=== PATIENT | male | born 1945 | race Caucasian/White ===

== ENCOUNTER 2024-08-01 12:35 | Emergency (ER) | payer OTHER, SELFPAY ==
[2024-08-01 12:38] VITALS: BP 174/100
--- NOTE | 2024-08-01 14:56 | ED.GENMED ---
History of Present Illness
General
Chief Complaint: Dizziness
Source: patient
Exam Limitations: none
Time Seen by Provider: 08/01/24 14:45
Nursing documentation reviewed up to this point in time: agreed with
History of Present Illness
History of Present Illness:
Patient to ED with complaint of dizziness. States he woke at 11:30PM last night to check the time and noted dizziness. Dizziness lasted all night. Today dizziness is intermittent. States he tried to work today but was let go early because of
dizziness. Denies fever/chills, n/v/d. No recent illness. No prior history of same.
Past History
Past History
ED Past Medical History: CAD, HTN, Hypercholesterolemia and NIDDM
ED Past Surgical History: Cardiac (stent)
Social History
Tobacco: Former smoker
Alcohol: Occasional
Drug: None
Personal:
Living: with family
Family History
Family History: CAD
Review of Systems
Review of Systems
Allergies reviewed?: Yes
All Other Systems: ROS reviewed and negative except as documented in HPI and ROS
Constitutional: Reports no symptoms
EENT: Reports no symptoms
Respiratory: Reports no symptoms
Cardiac: Reports no symptoms
ABD/GI: Reports no symptoms
: Reports no symptoms
Musculoskeletal: Reports no symptoms
Skin: Reports no symptoms
Neurological: Reports dizzy
Psychiatric: Reports no symptoms
Phy Exam
General Physical Exam
General Presentation: well appearing and no apparent distress
General age: appears stated age
General Skin: warm
General Habitus: normal
General Mental: alert
ENT Exam
ENT Exam: EOMI, TM's normal and neck supple
Eye Exam
Eye Exam: PERRL, EOMI and other (No nystagmus)
Cardiovascular Exam
Cardiovascular Exam: regular rate/rhythm and no edema
Neurological Exam
Neurological Exam: alert, oriented x3, CN II-XII intact, no motor deficits, no sensory deficits and speech normal
NIH Stroke Score
Level of Consciousness: 0 - Alert
LOC questions: 0-Answers both correctly
LOC Commands: 0-Performs both correctly
Best Gaze: 0-Normal
Visual [place]: 0=Normal, no visual loss
Facial palsy: 0=Normal, symmetrical
Motor - Right Arm: 0=No drift 10 seconds
Motor - Left Arm: 0=No drift 10 seconds
Motor - Right Le-No drift 5 seconds
Motor - Left Le-No drift 5 seconds
Limb Ataxia: 0-Absent
Sensation: 0-Normal
Best Language: 0-No aphasia
Dysarthria: 0-Normal
Extinction and Inattention: 0-No abnormality
Total Score:: 0
Musculoskeletal Exam
Musculoskeletal Exam: full ROM and neuro vasc intact
Skin Exam
Skin Exam: normal color, warm/dry and no rash
Psychiatric Exam
Psychiatric Exam: normal mood/affect
Course
Orders/Labs/Results
Orders:
Orders
08/01/24 14:54
Meclizine [Antivert] 12.5 mg PO NOW STA
08/01/24 14:55
Electrocardiogram (*1) Urgent
Reason for Study: Vertigo / Dizzy
CT Head W/o Iv Contrast Urgent
Comment:
Reason For Exam: gait dysfunction, dizziness
EKG- Treatment ONCE
08/01/24 16:38
Complete Blood Count/With Diff Urgent
Comprehensive Metabolic Panel Urgent
Troponin I Urgent
Urinalysis Reflex To Culture Urgent
Date Specimen was Collected: 08/01/24
Time Specimen was Collected: 16:39
08/01/24 17:25
Orthostatic VS- Treatment ONCE
Abnormal Lab Results
08/01/24
16:38
RBC 4.13 L 10^6/uL
(4.70-6.10)
Hgb 12.4 L g/dL
(13.0-18.0)
Hct 35.0 L %
(39.0-52.0)
Absolute Monos (auto) 0.7 H 10^3/uL
(0.1-0.6)
Glucose 141 H mg/dl
(70-99)
08/01/24 16:38
08/01/24 16:38
Vital Signs
Initial and Last Documented VS:
Initial Vital Signs
Temp Pulse Resp BP Pulse Ox
98.7 F 77 18 174/100 98
08/01/24 12:38 08/01/24 12:38 08/01/24 12:38 08/01/24 12:38 08/01/24 12:38
Last Documented Vital Signs
Temp Pulse Resp BP Pulse Ox
98.7 F 78 18 179/102 100
08/01/24 12:38 08/01/24 17:36 08/01/24 12:38 08/01/24 17:36 08/01/24 17:36
*Radiology
Radiology exam reviewed: radiology read reviewed
*Critical Care Note
Total Time (30-74mins, 75-104mins- exclusive of procedures): Not Applicable
Update Note
Update Note:
Labs, CT results reviewed with patient. EKG NSR, Troponin neg. Neuro exam unremarkable, no deficits noted. Dizziness with position changes consistent with vertigo. Given rx for meclizine. Will discharge home, close follow up with PCP. Given
number for vestibula rehab. Given instructions on s/s to return to eD and he is agreeable to plan.
ED Attending Note
-
Portions of this chart may have been created with voice recognition software.� Occasional wrong word or��sound alike� substitutions may have occurred due to the inherent limitations of voice recognition software.
Discharge Plan
Departure
Patient Disposition: Home (Routine Discharge)
Date of Disposition: 08/01/24
Time of Disposition: 17:41
Patient with high blood pressure during this ER visit?: No
Condition: Good
Covid-19: Not Applicable
Discharge Problem:
Vertigo
Instructions: Vertigo (a Type of Dizziness) (DC)
Prescriptions:
New
meclizine 25 mg tablet
25 mg PO TID PRN (Reason: dizziness) Qty: 14 0RF
No Action
multivitamin 1 EACH tablet
1 ea PO DAILY
lisinopril 20 MG tablet
20 mg PO DAILY
aspirin [Soila Chewable Aspirin] 81 MG tablet,chewable
81 mg PO DAILY
atorvastatin 40 MG tablet
40 mg PO QPM Qty: 90 5RF
nitroglycerin 0.4 MG tablet, sublingual
0.4 mg sublingual [id number] PRN (Reason: chest pain) Qty: 25 5RF
metformin 1,000 MG tablet
1,000 mg PO BID Qty: 0 0RF
metoprolol succinate 25 MG tablet extended release 24 hr
25 mg PO DAILY Qty: 90 10RF
pantoprazole [Protonix] 20 mg tablet,delayed release (DR/EC)
20 mg PO DAILY Qty: 30 0RF
Referrals:
Jess Castro, DO [Family Provider] - Tomorrow
Stand Alone Forms: Return to Work
Interventions
Interventions:
*Risk Screen - Suicide Last Done: 08/01/24 12:38
*General Assessment Last Done: 08/01/24 12:38
*Neglect/Abuse Screening Last Done: 08/01/24 15:21
ED- Fall Risk Assessment Last Done: 08/01/24 15:20
*ED COVID-19 Vaccine History Last Done: 08/01/24 12:38
ED- Neurological Assessment Last Done: 08/01/24 15:02
ED Swallowing Screen Last Done: 08/01/24 15:02
Discharge Date and Time
Print Language: POLISH
[2024-08-01 15:02] VITALS: BMI 26.4
[2024-08-01] MEDS: ANTIVERT 12.5 MG PO (15:05)
[2024-08-01 17:00] VITALS: BP 160/90
[2024-08-01 17:00] LABS: % Basophils 0.8 % (0-2); % Eosinophils 3.3 % (0-6); % Immature Granulocytes 0.1 % (0-0.5); % Lymphocytes 32.2 % (20.5-51.1); % Monocytes 8.8 % (1.7-9.3); % Neutrophils 54.8 % (42.2-75.2); Absolute Basophils 0.1 10^3/uL (0-0.2); Absolute Eosinophils 0.3 10^3/uL (0-0.7); Absolute Lymphocytes 2.7 10^3/uL (1.2-3.4); Absolute Monocytes 0.7 10^3/uL (0.1-0.6); Absolute Neutrophils 4.5 10^3/uL (1.4-6.5); Hemoglobin 12.4 g/dL (13.0-18.0); Mean Corp Hgb Conc. 35.4 g/dL (33.0-37.0); Mean Corpuscular Volume 84.7 fL (80.0-94.0); Mean Platelet Volume 8.4 fL (7.4-10.4); Nucleated Red Blood Cells % 0 % (-); Platelet Count 233 10^3/uL (130-400); Red Blood Cell Count 4.13 10^6/uL (4.70-6.10); Red Cell Dist. Width 12.8 % (11.5-14.5); White Blood Cell Count 8.3 10^3/uL (4.8-10.8)
[2024-08-01 17:01] LABS: Urine Albumin Negative (Neg - Trace); Urine Bilirubin Negative (Negative); Urine Character Clear (Clear); Urine Color Yellow; Urine Glucose Negative (Negative); Urine Ketone Negative (Negative); Urine Leukocyte Negative (Negative); Urine Nitrite Negative (Negative); Urine Occult Blood Negative (Negative); Urine Urobilinogen Negative (Neg - 1+)
[2024-08-01 17:08] LABS: ALT (SGPT) 30 U/L (0-50); AST (SGOT) 32 U/L (17-59); Albumin 4.5 g/dl (3.5-5.0); Alkaline Phosphatase 65 U/L (38-126); Blood Urea Nitrogen 17 mg/dl (9-20); Calcium 9.9 mg/dl (8.4-10.2); Carbon Dioxide 23 mmol/L (22-30); Chloride 102 mmol/L (98-107); Estimated Creatinine Clearance 84 ml/min; Glucose 141 mg/dl (70-99); Potassium 4.3 mmol/L (3.5-5.1); Sodium 135 mmol/L (135-145); Total Bilirubin 0.8 mg/dl (0.2-1.3); Total Protein 7.3 g/dl (6.3-8.2); eGFR > 60.00
[2024-08-01 17:18] LABS: Troponin I < 0.012 ng/ml
[2024-08-01 17:33] VITALS: BP 164/83; BP 179/102; BP 182/96; PULSE 83; PULSE 84; PULSE 92
[2024-08-01 17:34] VITALS: BP 182/96
[2024-08-01 17:36] VITALS: BP 179/102
== END 2024-08-01 17:53 | disposition home or self-care (01) ==
LOC: EMR 12:35
PROVIDERS: Nurse Practitioner; EMERGENCY PHYSICIAN Emergency Medicine; FAMILY PHYSICIAN Family Medicine
DX: R42 Dizziness and giddiness (principal); I25.10 Atherosclerotic heart disease of native coronary artery without angina pectoris; I10 Essential (primary) hypertension; E78.00 Pure hypercholesterolemia, unspecified; E11.9 Type 2 diabetes mellitus without complications; K57.90 Diverticulosis of intestine, part unspecified, without perforation or abscess without bleeding; Z95.5 Presence of coronary angioplasty implant and graft; Z85.828 Personal history of other malignant neoplasm of skin; Z87.891 Personal history of nicotine dependence; Z79.82 Long term (current) use of aspirin; Z79.84 Long term (current) use of oral hypoglycemic drugs; Z88.1 Allergy status to other antibiotic agents
CPT/HCPCS: 99285; 70450; 80053; 81003; 84484; 85025; 93005

== ENCOUNTER 2024-12-17 11:50 | Emergency (ER) | payer OTHER, SELFPAY ==
[2024-12-17 12:08] VITALS: BP 140/78
[2024-12-17 12:37] LABS: Hematocrit 32.6 % (39.0-52.0); Hemoglobin 11.3 g/dL (13.0-18.0); Mean Corp Hgb Conc. 34.7 g/dL (33.0-37.0); Mean Corpuscular Volume 87.9 fL (80.0-94.0); Nucleated Red Blood Cells % 0 % (-); Platelet Count 242 10^3/uL (130-400); Red Cell Dist. Width 12.7 % (11.5-14.5)
[2024-12-17 13:01] LABS: Troponin I < 0.012 ng/ml
[2024-12-17 13:09] LABS: ALT (SGPT) 34 U/L (0-50); AST (SGOT) 39 U/L (17-59); Albumin 4.6 g/dl (3.5-5.0); Alkaline Phosphatase 58 U/L (38-126); Blood Urea Nitrogen 18 mg/dl (9-20); Calcium 9.7 mg/dl (8.4-10.2); Carbon Dioxide 22 mmol/L (22-30); Chloride 105 mmol/L (98-107); Glucose 244 mg/dl (70-99); Potassium 4.3 mmol/L (3.5-5.1); Sodium 137 mmol/L (135-145); Total Protein 7.5 g/dl (6.3-8.2); eGFR > 60.00
[2024-12-17 13:13] VITALS: BP 141/79
[2024-12-17 13:15] VITALS: BMI 23.7
[2024-12-17 14:00] VITALS: BP 138/70
--- NOTE | 2024-12-17 14:43 | ED.GENMED ---
History of Present Illness
General
Chief Complaint: Chest Pain
Source: patient
Exam Limitations: none
Time Seen by Provider: 12/17/24 14:17
Nursing documentation reviewed up to this point in time: agreed with
History of Present Illness
History of Present Illness:
79 yo male w h/o cardiac stent x 2, MO, he presents with complaints of severe pain on the left side of his chest, under his armpit which started this 6:30 a.m., noted upon awakening. The pain occasionally radiates to his back, and up and down the
left back. The pain is aggravated by movement but is not associated with nausea, vomiting, diaphoresis, or shortness of breath. The patient does not report any recent injuries or overuse of his arms.
The patient is concerned that it may be a cardiac issue, but initial discussions suggest a musculoskeletal origin since the pain changes with movement, is reproducible with palpation.
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
Past History
Past History
ED Past Medical History: CAD, HTN, Hypercholesterolemia and NIDDM
ED Past Surgical History: Cardiac (stent x 2)
Social History
Tobacco: Former smoker
Alcohol: Occasional
Drug: None
Personal:
Living: with family
Family History
Family History: CAD
Review of Systems
Review of Systems
Allergies reviewed?: Yes
All Other Systems: ROS reviewed and negative except as documented in HPI and ROS
Constitutional: Denies fever
Respiratory: Denies cough or trouble breathing
Cardiac: Denies diaphoresis, palpitations or syncope
ABD/GI: Denies abdominal pain or nausea
: Denies dysuria or difficulty voiding
Musculoskeletal: Reports other (Left chest wall pain and pain under left axilla)
Skin: Reports no symptoms
Neurological: Reports no symptoms
Phy Exam
Physical Exam
Physical Exam:
GENERAL: No acute distress. A&Ox3.
CONSTITUTIONAL: Afebrile.
EYES: clear, conjunctivae normal
ENMT: moist mucus membranes, Pharynx nl
RESPIRATORY: Regular respirations, nonlabored, lungs clear.
CARDIOVASCULAR: Regular rate and rhythm, no murmurs, no rubs.
GI: Soft, nontender, normal BS
MUSCULOSKELETAL: Pain immediately reproduced with palpation of area lateral ribs 5-8 moves with ease. Movement aggravates pain. Well perfused.
SKIN: Warm, dry, pink
PSYCH: Normal mood and affect. Well kept, interactive and appropriate
NEUROLOGIC: Awake, alert and oriented. No focal neurological deficits
Scores
Heart Score for Chest Pain Patients
STEMI patient?: Not applicable
Course
Orders/Labs/Results
Orders:
Orders
12/17/24 11:51
Electrocardiogram (*1) Urgent
Reason for Study: Chest Pain
EKG- Treatment ONCE
12/17/24 12:16
CXR2 [CR Chest - 2 Views ] Urgent
Comment:
Reason For Exam: chest pain
12/17/24 12:27
CMP [Comprehensive Metabolic Panel] Urgent
Complete Blood Count/With Diff Urgent
Troponin I Urgent
12/17/24 14:43
Electrocardiogram (*1) Urgent
Reason for Study: Chest Pain
EKG- Treatment ONCE
12/17/24 14:48
Troponin I Urgent
Abnormal Lab Results
12/17/24
12:27
RBC 3.71 L 10^6/uL
(4.70-6.10)
Hgb 11.3 L g/dL
(13.0-18.0)
Hct 32.6 L %
(39.0-52.0)
Absolute Neuts (auto) 7.1 H 10^3/uL
(1.4-6.5)
Absolute Monos (auto) 1.0 H 10^3/uL
(0.1-0.6)
Lymphocytes % 15.3 L %
(20.5-51.1)
Monocytes % 10.6 H %
(1.7-9.3)
Glucose 244 H mg/dl
(70-99)
12/17/24 12:27
12/17/24 12:27
Vital Signs
Initial and Last Documented VS:
Initial Vital Signs
Temp Pulse Resp BP Pulse Ox
99.6 F 99 20 140/78 98
12/17/24 12:08 12/17/24 12:08 12/17/24 12:08 12/17/24 12:08 12/17/24 12:08
Last Documented Vital Signs
Temp Pulse Resp BP Pulse Ox
99.6 F 82 18 138/70 100
12/17/24 12:08 12/17/24 15:15 12/17/24 15:15 12/17/24 14:00 12/17/24 15:15
MDM/Problems Addressed
Differential Diagnosis Includes:
Musculoskeletal pain, MO, angina, GERD, costochondritis, pneumonia
MDM/Problems Addressed:
79 yo male w h/o cardiac stent x 2, MO, he presents with complaints of severe pain on the left side of his chest, under his armpit which started this 6:30 a.m., noted upon awakening. The pain occasionally radiates to his back, and up and down
the left back. The pain is aggravated by movement but is not associated with nausea, vomiting, diaphoresis, or shortness of breath. The patient does not report any recent injuries or overuse of his arms.
The patient is concerned that it may be a cardiac issue, but initial discussions suggest a musculoskeletal origin since the pain changes with movement, is reproducible with palpation.
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
Plan:
1. Continue monitoring cardiac enzymes with serial troponin tests to rule out myocardial infarction, as initial tests were clear.
2. Educate the patient about the signs of worsening symptoms, specifically for musculoskeletal versus cardiac chest pain, and when to seek f/u
CBC, CMP with no clinically significant abnormality
Troponin WNL
EKG sinus rhythm with sinus arrhythmia no change from previous
4:00 PM: Troponin #2
Normal this is most likely musculoskeletal pain, patient is stable for discharge.
*Pulse Oximetry
SaO2: 98
Oxygen Mode of Delivery: Room air
Patient hypoxic: no
*EKG
EKG Intrepretation Date: 12/17/24
Interpretation: abnormal
Heart Rate: 99
Rate: normal
Rhythm: sinus and sinus arrhythmia
[place]: normal axis
Interval: normal interval
QRS Pattern: normal QRS
Ischemia: no ischemia
*Critical Care Note
Total Time (30-74mins, 75-104mins- exclusive of procedures): Not Applicable
ED Attending Note
-
Portions of this chart may have been created with voice recognition software.� Occasional wrong word or��sound alike� substitutions may have occurred due to the inherent limitations of voice recognition software.
Discharge Plan
Departure
Patient Disposition: Home (Routine Discharge)
Date of Disposition: 12/17/24
Time of Disposition: 15:59
Patient with high blood pressure during this ER visit?: No
Condition: Good
Discharge Problem:
Chest pain, musculoskeletal
Instructions: Musculoskeletal Pain
Prescriptions:
No Action
multivitamin 1 EACH tablet
1 ea PO DAILY
lisinopril 20 MG tablet
20 mg PO DAILY
aspirin [Soila Chewable Aspirin] 81 MG tablet,chewable
81 mg PO DAILY
atorvastatin 40 MG tablet
40 mg PO QPM Qty: 90 5RF
nitroglycerin 0.4 MG tablet, sublingual
0.4 mg sublingual [id number] PRN (Reason: chest pain) Qty: 25 5RF
metformin 1,000 MG tablet
1,000 mg PO BID Qty: 0 0RF
metoprolol succinate 25 MG tablet extended release 24 hr
25 mg PO DAILY Qty: 90 10RF
pantoprazole [Protonix] 20 mg tablet,delayed release (DR/EC)
20 mg PO DAILY Qty: 30 0RF
meclizine 25 mg tablet
25 mg PO TID PRN (Reason: dizziness) Qty: 14 0RF
Referrals:
Jess Castro, DO [Family Provider, Family Practice] - As needed
Stand Alone Forms: Return to Work
Activity Restrictions/Additional Instructions:
As we discussed, nothing worrisome in your workup here today, specifically no sign of a heart attack.
This is most likely musculoskeletal pain, avoid lifting more than 5 pounds until the pain is better
Tylenol or ibuprofen as needed for pain.
Interventions
Interventions:
*Risk Screen - Suicide Last Done: 12/17/24 12:08
*General Assessment Last Done: 12/17/24 13:15
*Neglect/Abuse Screening Last Done: 12/17/24 12:08
*ED- Fall Risk Assessment Last Done: 12/17/24 13:15
*ED COVID-19 Vaccine History Last Done: 12/17/24 12:08
*Nursing Disposition Last Done: 12/17/24 16:06
ED- Cardiac Assessment Last Done: 12/17/24 13:15
Discharge Date and Time
Discharge Date/Time: 12/17/24 16:06
Print Language: MONGOLIAN
[2024-12-17 15:17] LABS: Troponin I < 0.012 ng/ml
== END 2024-12-17 16:06 | disposition home or self-care (01) ==
LOC: EMR 11:50
PROVIDERS: Emergency Medicine; Registered Nurse; EMERGENCY PHYSICIAN Emergency Medicine; FAMILY PHYSICIAN Family Medicine
DX: R07.89 Other chest pain (principal); M79.622 Pain in left upper arm; M54.9 Dorsalgia, unspecified; I10 Essential (primary) hypertension; E78.00 Pure hypercholesterolemia, unspecified; E11.9 Type 2 diabetes mellitus without complications; I25.10 Atherosclerotic heart disease of native coronary artery without angina pectoris; K57.90 Diverticulosis of intestine, part unspecified, without perforation or abscess without bleeding; M19.90 Unspecified osteoarthritis, unspecified site; I25.2 Old myocardial infarction; Z95.5 Presence of coronary angioplasty implant and graft; Z86.16 Personal history of COVID-19; Z85.828 Personal history of other malignant neoplasm of skin; Z87.891 Personal history of nicotine dependence; Z79.84 Long term (current) use of oral hypoglycemic drugs; Z79.82 Long term (current) use of aspirin; Z88.1 Allergy status to other antibiotic agents
CPT/HCPCS: 99285; 71046; 80053; 84484; 85025; 93005

== ENCOUNTER 2025-04-01 16:08 | Emergency (ER) | payer OTHER, SELFPAY ==
[2025-04-01] VITALS (8 sets, daily range): BP systolic 129–175; BP diastolic 83–112
[2025-04-01 17:03] LABS: Hematocrit 36.9 % (39.0-52.0); Hemoglobin 12.6 g/dL (13.0-18.0); Mean Corp Hgb Conc. 34.1 g/dL (33.0-37.0); Mean Corpuscular Volume 88.3 fL (80.0-94.0); Nucleated Red Blood Cells % 0 % (-); Platelet Count 238 10^3/uL (130-400); Red Cell Dist. Width 12.9 % (11.5-14.5)
[2025-04-01 17:14] LABS: INR 1.06; PT 14.1 Sec (11.4-14.6)
--- NOTE | 2025-04-01 17:14 | ED.GENMED ---
History of Present Illness
General
Chief Complaint: Chest Pain
Time Seen by Provider: 04/01/25 17:14
History of Present Illness
History of Present Illness:
FOCUSED PAST MEDICAL HISTORY
- CAD
REVIEW OF OLD RECORDS
- I reviewed records, the patient was seen here with chest pain in November 2022 and at that time acute coronary syndrome was ruled out. At that time he had chest pain that resolved with nitroglycerin. He did have a coronary cath at that time which
showed noncritical CAD with patent stents.
-Cath report from November 2021 showed patent stent of the circumflex which was placed in October 2021 but there was an 80% proximal stenosis of a large first diagonal branch which was stented.
Note:
CHIEF COMPLAINT(S)
Chest pressure.
HISTORY OF PRESENT ILLNESS
The patient is a 80-year-old male with a history of coronary artery disease who presents with chest pressure. He describes the sensation as similar to what he experienced before having stents placed, the first in November 2019 and the second in December
2019, due to significant artery blockages. About three and a half weeks ago, the patient began experiencing chest pressure again, which prompted todays visit to the emergency department as it increased in intensity this morning. He acknowledges that
his condition worsens slightly upon inhalation, although it is not as severe as it was this morning. The patient mentions a previous episode earlier this summer that was less severe and turned out to be unrelated to his cardiac history.
The patient has not taken nitroglycerin, although he has it available. He reports low-dose aspirin use earlier today. His most recent cardiac catheterization in 2022 showed patent stents and no new significant blockages. His current machine coil assembler is
Dr. Kwon from [facility], who he has not contacted in the past few weeks.
PAST MEDICAL AND SURGICAL HISTORY
- Coronary artery disease with stents placed in November and December 2019.
EXTERNAL RECORDS REVIEWED
The patients records indicate that the most recent cardiac catheterization in 2022 showed patent stents. Previous catheterization in 2019 showed an 80% blockage in the first diagonal branch, which was subsequently addressed with stenting.
PHYSICAL EXAM
General: Alert, no acute distress.
Skin: Warm, dry.
Head: Normocephalic, atraumatic.
Neck: Supple, trachea midline.
Eyes, Ears, Nose, and Throat: Oral mucosa moist.
Cardiovascular: Normal peripheral perfusion, No edema. No significant chest wall tenderness, regular rhythm, normal rate
Respiratory: Respirations are non-labored. Breath sounds are clear
Gastrointestinal: Abdomen nondistended.
Back: Normal range of motion, Normal alignment.
Musculoskeletal: Normal range of motion, normal strength.
Neurological: Alert and oriented to person, place, time, and situation, No focal neurological deficit observed.
Psychiatric: Cooperative, appropriate mood and affect.
PROBLEM LIST
Acute:
- Chest pressure
Chronic:
- Coronary artery disease
PLAN
1. Repeat cardiac blood tests in one to two hours to rule out any acute cardiac event.
2. Administer nitroglycerin to evaluate its effect on symptom improvement.
3. Monitor chest pressure and reassess if worsening.
4. Follow up with machine coil assembler Dr. Kwon at [facility] for further management and evaluation of cardiac status.
DIFFERENTIAL DIAGNOSIS
The differential diagnosis includes, in no particular order and is not limited to:
1. Stable angina
2. Unstable angina
3. Gastroesophageal reflux disease
4. Costochondritis
5. Anxiety-related chest pain
6. Aortic stenosis
7. Pulmonary embolism
8. Pericarditis
9. Myocardial infarction
10. Pneumonia
EKG
- Sinus 76, leftward axis deviation, no acute ST abnormality, no significant change from 12/17/2024
LABS
- White count normal, hemoglobin 12.6, Initial troponin negative, BNP 70, chemistries unremarkable. Second troponin also negative
UPDATE
-SUMMARY OF ENCOUNTER
The patient, a 80-year-old male with a history of coronary artery disease, presented to the emergency department with chest pressure similar to previous experiences before stent placement. Despite recent cardiac catheterization in 2022 showing
patent stents, the patient experienced intensified chest pressure this morning. In the emergency department, cardiac blood tests were ordered to repeat at 8:00 PM to rule out any acute cardiac events. Nitroglycerin was administered to assess symptom
relief, and the patient reported some ease in chest discomfort. Next steps involve coordinating follow-up care with a machine coil assembler closer to the patients preferred healthcare facility.
PLAN
1. Repeat cardiac blood tests around 8:00 PM and review results around 8:45 to 9:00 PM to evaluate any acute cardiac changes. These were normal.
2. Discharge the patient with recommendations for outpatient follow-up.
3. Provide the patient with the contact information of a machine coil assembler at [facility] to facilitate closer follow-up.
FOLLOW-UP INSTRUCTIONS
Coordinate a follow-up appointment with the [facility] practice to evaluate and monitor the patients cardiac status following discharge.
MEDICATION RECONCILIATION
Nitroglycerin was administered during the visit for the relief of chest pressure.
MEDICAL DECISION MAKING
-Complexity of Data Reviewed: Chronic conditions affecting care [Coronary artery disease with stents placed in 2019].
-Data:
Category 1
Repeat cardiac blood tests have been ordered to monitor any acute changes in cardiac enzymes.
Category 3
Discussion of management with another cardiology provider indicated for post-discharge follow-up and continuity of care.
-Risk:
Consideration of Admission/Observation: Escalation of care including admission/observation was considered given the complexity and risk of the patients presenting complaint, exam findings, and their underlying comorbidities. However, ultimately I
feel the patient is safe for outpatient management with close follow-up. Reasoning: Work-up is reassuring, does not reveal any acute life/organ-threatening processes, patients symptoms are well controlled upon reevaluation, reexamination is
reassuring, vitals are stable, patient agreeable with discharge, and reliable for follow-up.
DIAGNOSIS
Chest pain
The patient was given some nitroglycerin earlier with only questionable improvement. He had minimal symptoms upon arrival and feels very comfortable on reassessment. He does have a primary machine coil assembler affiliate with [place] but he may end up
following here as [facility] has performed the intervention in the past. I have given him the contact information for [facility].
Past History
Past History
ED Past Medical History: CAD, HTN, Hypercholesterolemia and NIDDM
ED Past Surgical History: Cardiac (stent x 2)
Social History
Tobacco: Former smoker
Alcohol: Occasional
Drug: None
Personal:
Living: with family
Family History
Family History: CAD
Phy Exam
Physical Exam
Physical Exam:
See HPI
Scores
Heart Score for Chest Pain Patients
STEMI patient?: Not applicable
Course
Orders/Labs/Results
Orders:
Orders
04/01/25 16:09
Electrocardiogram (*1) Urgent
Reason for Study: Chest Pain
EKG- Treatment ONCE
04/01/25 16:56
Comprehensive Metabolic Panel Urgent
PTT Urgent
Prothrombin Time Urgent
04/01/25 16:57
Complete Blood Count/With Diff Urgent
NT-proBNP Urgent
Troponin I Urgent
04/01/25 17:35
Nitroglycerin Sublingual [Nitrostat (Sublingual)] 0.4 mg SL NOW STA
04/01/25 17:39
EKG- Treatment ONCE
04/01/25 20:00
Electrocardiogram (*1) Urgent
Reason for Study: Chest Pain
04/01/25 20:22
Troponin I Urgent
Abnormal Lab Results
04/01/25 04/01/25
16:56 16:57
RBC 4.18 L 10^6/uL
(4.70-6.10)
Hgb 12.6 L g/dL
(13.0-18.0)
Hct 36.9 L %
(39.0-52.0)
Absolute Monos (auto) 0.8 H 10^3/uL
(0.1-0.6)
Glucose 129 H mg/dl
(70-99)
04/01/25 16:57
04/01/25 16:56
Vital Signs
Initial and Last Documented VS:
Initial Vital Signs
Temp Pulse Resp BP Pulse Ox
37.0 C 84 17 175/107 99
04/01/25 16:10 04/01/25 16:10 04/01/25 16:10 04/01/25 16:10 04/01/25 16:10
Last Documented Vital Signs
Temp Pulse Resp BP Pulse Ox
37.0 C 80 16 143/84 98
04/01/25 16:10 04/01/25 21:15 04/01/25 21:15 04/01/25 21:00 04/01/25 21:15
*Pulse Oximetry
SaO2: 100
Oxygen Mode of Delivery: Room air
Patient hypoxic: no
*Critical Care Note
Total Time (30-74mins, 75-104mins- exclusive of procedures): Not Applicable
ED Attending Note
-
Portions of this chart may have been created with voice recognition software.� Occasional wrong word or��sound alike� substitutions may have occurred due to the inherent limitations of voice recognition software.
Discharge Plan
Departure
Patient Disposition: Home (Routine Discharge)
Date of Disposition: 04/01/25
Time of Disposition: 21:21
Patient with high blood pressure during this ER visit?: Yes
Discharge Problem:
Chest pain
Instructions: Chest Pain CBC Follow Up, BLOOD PRESSURE
Prescriptions:
No Action
multivitamin 1 EACH tablet
1 ea PO DAILY
lisinopril 20 MG tablet
20 mg PO DAILY
aspirin [Soila Chewable Aspirin] 81 MG tablet,chewable
81 mg PO DAILY
atorvastatin 40 MG tablet
40 mg PO QPM Qty: 90 5RF
nitroglycerin 0.4 MG tablet, sublingual
0.4 mg sublingual [id number] PRN (Reason: chest pain) Qty: 25 5RF
metformin 1,000 MG tablet
1,000 mg PO BID Qty: 0 0RF
metoprolol succinate 25 MG tablet extended release 24 hr
25 mg PO DAILY Qty: 90 10RF
pantoprazole [Protonix] 20 mg tablet,delayed release (DR/EC)
20 mg PO DAILY Qty: 30 0RF
meclizine 25 mg tablet
25 mg PO TID PRN (Reason: dizziness) Qty: 14 0RF
Referrals:
Jess Castro DO [Family Provider, Family Practice]
Activity Restrictions/Additional Instructions:
You had 2 cardiac troponins which were both negative. 2 EKGs are also unremarkable. I recommend that you follow-up with machine coil assembler either with Dr. Haywood or with Dr Calvillo ([facility]). Return here if worse or other concerns.
Interventions
Interventions:
*Risk Screen - Suicide Last Done: 04/01/25 16:10
*General Assessment Last Done: 04/01/25 16:10
*Neglect/Abuse Screening Last Done: 04/01/25 16:10
*ED COVID-19 Vaccine History Last Done: 04/01/25 16:10
*ED Influenza Vaccine History Last Done: 04/01/25 16:10
*Nursing Disposition Last Done: 04/01/25 21:24
ED- Cardiac Assessment Last Done: 04/01/25 16:49
Discharge Date and Time
Print Language: THAI
[2025-04-01 17:15] LABS: APTT 31.5 Sec (23.4-35.0)
[2025-04-01 17:28] LABS: ALT (SGPT) 32 U/L (0-50); AST (SGOT) 28 U/L (17-59); Albumin 4.8 g/dl (3.5-5.0); Alkaline Phosphatase 61 U/L (38-126); Blood Urea Nitrogen 17 mg/dl (9-20); Calcium 9.8 mg/dl (8.4-10.2); Carbon Dioxide 23 mmol/L (22-30); Chloride 104 mmol/L (98-107); Estimated Creatinine Clearance 72 ml/min; Glucose 129 mg/dl (70-99); Potassium 4.4 mmol/L (3.5-5.1); Sodium 136 mmol/L (135-145); Total Protein 7.8 g/dl (6.3-8.2); eGFR > 60.00
[2025-04-01 17:29] LABS: Troponin I < 0.012 ng/ml
[2025-04-01] MEDS: NITROSTAT (SUBLINGUAL) 0.4 MG SL (17:42)
[2025-04-01 20:57] LABS: Troponin I < 0.012 ng/ml
== END 2025-04-01 21:27 | disposition home or self-care (01) ==
LOC: EMR 16:08
PROVIDERS: Emergency Medicine; EMERGENCY PHYSICIAN Emergency Medicine; FAMILY PHYSICIAN Family Medicine
DX: R07.89 Other chest pain (principal); I25.10 Atherosclerotic heart disease of native coronary artery without angina pectoris; I10 Essential (primary) hypertension; E78.00 Pure hypercholesterolemia, unspecified; E11.9 Type 2 diabetes mellitus without complications; Z87.891 Personal history of nicotine dependence; Z95.5 Presence of coronary angioplasty implant and graft
CPT/HCPCS: 99284; 80053; 83880; 84484; 85025; 85610; 85730; 93005